=== PATIENT | female | born 1935 | race Caucasian/White ===

== ENCOUNTER 2020-03-31 11:20 | Observation (INO) | payer MEDICARE, SELFPAY ==
--- NOTE | 2020-03-25 09:46 | EKG12_ITS ---
Test Reason : PREOP Blood Pressure : / mmHG Vent. Rate : 088 BPM Atrial Rate : 089 BPM P-R Int : 132 ms QRS Dur : 074 ms QT Int : 378 ms P-R-T Axes : -10 -29 028 degrees QTc Int : 457 ms Normal sinus rhythm Normal ECG No previous ECGs available Confirmed by MONISHA CROOKS, JAMIE ([id number]), video effects editor PAUL BIANCHI ([id number]) on 03/28/2020 11:28:35 AM Referred By: Doc Crisostomo Confirmed By:JAMIE BEARDEN MD
[2020-03-25 10:22] LABS: Absolute Lymphocyte Count 3.89 X10^3/uL (0.83-4.51); Absolute Neutrophil Count 5.8 X10^3/uL (2.0-7.7); Basophil# 0.08 X10^3/uL; Basophil% 0.8 % (0-1); Eosinophil# 0.21 X10^3/uL; Hematocrit 44.5 % (37-47); Hemoglobin 14.4 g/dL (12.0-15.0); Lymphocyte # 3.89 X10^3/ul (4.0); Lymphocyte % 36.6 % (19-41); Mean Corp Hgb Conc 32.4 g/dL (32-36); Mean Corpuscular Hgb 28.9 pg (27.0-32.0); Mean Corpuscular Volume 89.2 fL (81-99); Mean Platelet Vol. 9.4 fl (6.2-12.0); Monocyte# 0.61 X10^3/uL; Monocyte% 5.7 % (0-10); NRBC Flagged by Analyzer 0 % (0-5); Neutrophil # 5.79 X10^3/uL (2.7-7.7); Neutrophil % 54.4 % (47-70); Platelet Count 292 K/mm3 (150-450); RBC Distribution Width CV 15.2 % (11.6-14.6); RBC Distribution Width SD 49.4 fl (35.1-43.9); Red Blood Count 4.99 M/mm3 (4.2-5.4); White Blood Count 10.6 K/mm3 (4.4-11.0)
[2020-03-25 10:48] LABS: Anion Gap 6 (5-15); BUN 12 mg/dL (7-18); BUN/Creat Ratio 21.8 RATIO (10-20); Calcium,Total 9.9 mg/dL (8.5-10.1); Chloride 106 mmol/L (98-107); Creatinine, Serum 0.55 mg/dL (0.55-1.02); EST Glomerular Filtration Rate 111 mL/min (>60); Est Glom Filt Rate - Afr Amer 135 mL/min (>60); Glucose 117 mg/dL (74-106); Potassium 3.7 mmol/L (3.5-5.1); Sodium Level 141 mmol/L (136-145)
[2020-03-25 10:55] LABS: Hemoglobin A1c 5.8 % (3.8-5.6); Prothrombin Time (Protime)PT. 12.7 SECONDS (11.7-14.9)
[2020-03-25 10:56] LABS: Partial Thromboplast Time 31.5 Seconds (24.1-36.2)
--- NOTE | 2020-03-28 08:40 | RAD_ITS ---
EXAM DESCRIPTION: PA and lateral CHEST CLINICAL HISTORY: 85 years Female, preoperative, patient having spinal cord stimulator inserted, patient has no chest complaints preoperative, patient having spinal cord stimulator inserted, patient has no chest complaints COMPARISON: None FINDINGS: The thorax is intact. The heart and mediastinum appear to be within normal limits. The lungs appear to be well areated without evidence of pneumonic consolidation or pleural effusion. RAD/Chest PA and Lateral IMPRESSION: Normal PA and lateral chest Electronically Signed: Jun Banda, at 9:21 EST Tel , Service support ,
[2020-03-31] VITALS (22 sets, daily range): BP systolic 79–166; BP diastolic 51–98; PULSE 47–101; RESP 14–18; TEMP 35.6–37.1; O2SAT 93–100; BMI 21.9
[2020-03-31] MEDS: Lactated Ringers 1,000 ML 100 ML IV ×4 (06:43→15:51)
[2020-03-31] MEDS: Cefazolin 2 GM in 0.9% Normal Saline 100 ML IV (07:24)
--- NOTE | 2020-03-31 07:30 | RAD_ITS ---
PROCEDURE: Thoracic laminectomy and spinal cord stimulator insertion. DATE OF EXAMINATION: 03/31/2020. INDICATION: Female, 85 years old. Chronic back pain. FLUOROSCOPY TIME (if supplied): (92 seconds) minutes/seconds. Intraoperative imaging provided for laminectomy at the T9-T10 level and placement of a spinal cord stimulator device. RAD/Spine 1 View Any Level IMPRESSION: Intraoperative imaging provided for laminectomy and placement of a spinal cord stimulator device. Electronically Signed: Jason Orona, at 16:02 EST , Service support ,
[2020-03-31] MEDS: THROMBIN (RECOMBINANT) 20,000 UNIT VIAL 20000 UNIT TOPICAL (09:00)
[2020-03-31] MEDS: Bupivacaine 0.25% 30 ML Vial (10:59)
[2020-03-31] MEDS: Lidocaine 1% (30 ml sdv) 30 ML Vial (11:05)
--- NOTE | 2020-03-31 11:44 | SUR.PHASEI ---
DR ELAINE AT BEDSIDE TO REEVALUATE PATIENT. CONTINUES TO BE SINUS [place] IN 40-50'S, SBP 70-80'S, SLOW TO RESPOND VERBALLY BUT HAS Hx OF CVA 12/2019 WITH SOME VERBAL IMPAIRMENT PER REPORT. ACCUCHECK 130. FOLLOWS COMMANDS, DANGELO X 4. CONTINUING LR IVF 1000 ML BOLUS ORDERED BY DR ELAINE AT 1127. ROBINUL 0.[address] ELAINE AT BEDSIDE. CONTINUE CURRENT POC. AT 1157, DR THOMAS AT BEDSIDE FOR CONDITION UPDATE AND NEURO EVAL.
--- NOTE | 2020-03-31 11:49 | PCM.OPRPT ---
Report of Operation Date of Procedure: 03/31/20 Description of Surgical Findings:: REPORT OF OPERATION PREOPERATIVE DIAGNOSES: 1. Lumbar stenosis, spondylosis. 2. Chronic back pain POSTOPERATIVE DIAGNOSES: 1. Lumbar stenosis, spondylosis. 2. Chronic back pain PROCEDURE PERFORMED: 1. T9-10 partial bilateral laminectomies. 2. Dorsal column stimulator paddle lead placement. 3. Subcutaneous placement of dorsal column stimulator generator. 4. One hour of complex programming postoperatively. SURGEON: Andressa EXTRUSION PRESS OPERATOR: ANESTHESIA: General endotracheal anesthesia. IV FLUIDS: 1500] mL of crystalloid. ESTIMATED BLOOD LOSS: 10 mL. URINE OUTPUT: N/A ml. STATEMENT OF MEDICAL NECESSITY: This patient is a 85 -year old female with intractable back and leg pain. The patient has opted for treatment of operative intervention, understanding the risks to include, damage to nerves, arteries and veins, possibility of continued pain, need for additional surgery, pulmonary embolism, heart attack, stroke, or . DESCRIPTION OF PROCEDURE: The patient was identified in the preoperative holding area. There, the patient received the preoperative IV antibotics and then transferred to the operating suite. Once in the operating suite, after general endotracheal anesthesia was established, the patient was transferred to the [place] operating table in the prone position. All bony prominences were padded accordingly. The thoracolumbar spine was prepped and draped in standard surgical fashion. Incision was made over the thoracolumbar spine. An incision was centered over the T9-10 interlaminar space, taken down to the thoracic fascia. It was then divided and subperiosteal dissection was taken down to the level of the facet joints. Partial bilateral laminectomies were performed at the T9-10 interspace, with part of the inferior lamina of T9, and superior lamina of T10. At this point the paddle lead was placed spanning from T8 to the inferior end plate of T10. It was then anchored to the fascia using standard anchors with a silk suture. Wires from the stimulator were then passed subcutaneously with a passing device to the battery pocket and then connected to a new generator battery on the posterior right hip. Both incisions were then irrigated and closed with #1 vicryl for the fascia, 2-0 vicryl for subcutaneous, and 2-0 nylon for skin. Sterile dressing was applied with 4 x 4, ABD, and tape. Sponge, instrument, and needle counts were correct at the end of the case. The patient was extubated, taken to PACU without incident. Then one hour was spent with complex programming when the patient recovered
[2020-03-31 11:51] LABS: Bedside Glucose 130 mg/dL (70-110)
--- NOTE | 2020-03-31 11:53 | PCM.DC.ORTHO ---
Additional Instructions: 1. During your procedure, you received sedation through your IV. Please follow these instructions for the next 24 hours: Do not drive a motor vehicle, do not drink any alcoholic beverages, and do not sign any legal documents or make personal or business decisions. A responsible adult should stay with you at least 6 hours after the procedure. 2. Keep your surgical site/incision clean and the dressing dry and intact. You may sponge bathe, but no showering or sitting in a bathtub during your trial or for one week after the permanent implant. You may use an ice pack at the surgical site to reduce any swelling or discomfort. 3. Monitor the incision site for any signs or symptoms of infection. Watch for redness, excessive swelling or drainage, or continued pain at the incision site after 3 days. Contact your physician immediately for a fever, chills or a temperature of 101.5? F or greater. 4. Take your medication exactly as prescribed by your physician. Do not attempt to wean yourself off any of your medications even though your pain is improving. This process needs to be carefully monitored by your doctor. Take any antibiotics prescribed exactly as directed and until they are gone. 5. Avoid stretching, bending, pulling, twisting or any sudden movements. Do not bend or twist at the waist. Do not raise your arms above your head; however, you may brush your hair or scratch your head, but nothing higher than that. Any movements higher than that could cause your electrode wires to move from their current position. No not lie on your stomach. Do not bend at the waist to put your shoes on; you must lift your legs up to do this. 6. No lifting greater than 5 pounds. A gallon of milk weighs more than 5 pounds, so you may not lift this. Try to be careful. Any falls could dislodge the leads. 7. Do not operate a motor vehicle, equipment or a power tool while your stimulator is on. If you need to use any equipment, you must turn your stimulator off first. As a passenger in a motor vehicle, you may use your stimulator. 8. Do not have any manipulation done by a chiropractor or any other physician without first consulting with the physician who placed your spinal cord stimulator. 9. Without movement, you may note changes in the intensity of the stimulator. For example, you may notice a different stimulation when you are standing than when you are sitting or lying down. This is normal the first few weeks following the implant and will stabilize over time. 10. Please contact our office if you are even scheduled for a CT scan or an MRI. 11. Please call us if you have any questions, problems or concerns. Allergies/Adverse Reactions: Allergies PLASTIC TAPE Allergy (Uncoded 03/31/20 06:26) Rash Medications to take at Discharge Acetaminophen [Tylenol Extra Strength] 500 mg PO Q6H PRN PRN 03/25/20 Ascorbic Acid [Vitamin C] 1,000 mg PO DAILY 03/25/20 Aspirin E.C. [Ecotrin] 81 mg PO DAILY@0800 03/25/20 Calcium (Elemental) [Os-Viral 500] 1,000 mg PO DAILY@0800 03/25/20 Cholecalciferol (Vitamin D3) [Vitamin D3] 5,000 unit PO DAILY 03/25/20 Cyanocobalamin (Vitamin B-12) [Vitamin B-12] 1,000 mcg PO DAILY 03/25/20 Folic Acid 0.4 mg PO DAILY@0800 03/25/20 Hydrochlorothiazide [Hctz] 25 mg PO DAILY 03/25/20 Lisinopril [Zestril] 20 mg PO DAILY 03/25/20 Magnesium 250 mg PO DAILY 03/25/20 Multivitamin 1 ea PO DAILY 03/25/20 [place]-3 Fatty Acids/Fish Oil [Fish Oil 1,000 mg Capsule] 1 ea PO DAILY 03/25/20 Omeprazole 20 mg PO DAILY 03/25/20 Potassium 99 mg PO DAILY 03/25/20 Turmeric Root Extract [Turmeric] 500 mg PO DAILY 03/25/20 Zinc 50 mg PO DAILY 03/25/20 Primary Care Physician: Saran Goss MD [Primary Care Provider] - Test Results: Test results from this visit will be discussed in further detail at your follow-up appointment, if applicable.
--- NOTE | 2020-03-31 12:03 | PCM.PN.BLA ---
Progress Note Patient was seen and examined postop in the PACU. She is doing well. She is mildly hypotensive and bradycardic but is resting comfortably. She is alert and oriented and answers questions and follows commands. Her pain is controlled. Alert and oriented, no acute distress Abdomen soft and nontender Dressing clean dry and intact Extremities neurovascularly intact without focal deficit Admit to observation when stable See orders STROKE Vital Signs/Narrative: Vital Signs Temp Pulse Resp BP Pulse Ox 03/31/20 11:45 47 L 14 83/56 L 98 03/31/20 11:35 49 L 14 79/51 L 93 03/31/20 11:30 57 L 14 84/58 L 96 03/31/20 11:20 96.1 F L 56 L 14 91/58 L 97
--- NOTE | 2020-03-31 14:38 | PCM.PROGNOTE ---
Subjective: Patient was seen and examined today at the request of orthopedic surgery (Dr. Crisostomo), patient underwent implantation of a dorsal column stimulator and a laminectomy at T9-T10 for insertion of the stimulator. Postop patient was hypotensive for a short period of time with blood pressures in the 70s and 80s systolic, she was also bradycardic with pulse rates into the upper 40s, patient was asymptomatic and was given fluids. Since that time, patient's pulse rate has normalized and her blood pressure was 128/80. At the time of my examination, patient has no complaints of any back discomfort, shortness of breath, chest pain, fever, or chills. Patient's past medical history includes essential hypertension, osteoarthritis, GERD, spinal stenosis, failed spinal surgery, and CVA. - Physical Exam Vitals/I&O's: Vital Signs Temp Pulse Resp BP Pulse Ox 98.7 F 65 18 128/80 H 98 03/31/20 13:36 03/31/20 13:36 03/31/20 13:36 03/31/20 13:36 03/31/20 13:36 Oxygen Flow Rate (L/min) 2 Oxygen Delivery Method Room Air Weight: 54.3 kg Body Mass Index (BMI) 21.9 Finger Stick Blood Glucose 130 Intake and Output for Last 24 Hours 03/29/20 03/30/20 03/31/20 23:59 23:59 23:59 Intake Total 2109 Balance 2109 General: Alert, Oriented x3, Cooperative, No apparent distress, Well developed, Well nourished HEENT: Atraumatic, PERRLA, EOMI, Normocephalic Oral: Moist Mucosa Neck: Supple, No JVD, Negative Carotid Bruits, Trachea Midline, Thyroid Normal Size and Texture Lungs: Clear to auscultation, Normal air movement, No rhonchi, No wheeze, No rales Cardiovascular: Regular rate, Regular Rhythm, Normal S1, Normal S2, No murmurs, PMI Normal, No rub noted Abdomen: Bowel Sounds Present, Soft, Non Tender, Non-Distended Extremities: No clubbing, No cyanosis, No edema, Capillary Refill Less than 3 Seconds Skin: No rashes, No breakdown Musculoskeletal: No Tenderness to Palpation of Joints or Extremities Neurological: Cranial nerves II-XII grossly intact, Neuro grossly intact, Sensory exam intact to light touch and pain, Coordination normal Psych/Mental Status: Normal Affect, Appropriate, Alert and oriented to time, place, person, mood and affect Microbiology Past 72 Hours 03/28/20 09:00 Interface Orders SARS-CoV-2 Antigen (Rapid) - Final Laboratory Results 03/31/20 11:44: POC Glucose 130 H Current Medications Hydrocodone Bitart/Acetaminophen (Hydrocodone Bitartrate/Apap 5/325 Tablet) 1 tablet PO Q6H PRN PRN PRN Reason: Pain Score 4-5 Hydrochlorothiazide (Hydrochlorothiazide 25 Mg Tablet) 25 mg PO DAILY [facility] Lactated Ringer's () 1,000 mls @ 100 mls/hr IV .Q10H WILLIAM Last Admin: 03/31/20 12:10 Dose: 100 mls/hr Documented by: Lisinopril (Lisinopril 20 Mg Tablet) 20 mg PO DAILY [facility] Morphine Sulfate (Morphine 2 Mg/Ml Syringe) 2 - 4 mg IV Q4H PRN PRN PRN Reason: Pain Score 6-10 Morphine Sulfate (Morphine 4 Mg/Ml Syringe) 2 - 4 mg IV Q4H PRN PRN PRN Reason: Pain Score 6-10 Non-Formulary Medication (Omeprazole) 20 mg PO DAILY [facility] Ondansetron HCl (Ondansetron 4 Mg/2 Ml Vial) 4 mg IV Q6H PRN PRN PRN Reason: NAUSEA Tizanidine HCl (Tizanidine Hcl 2 Mg Tablet) 2 mg PO Q8H PRN PRN PRN Reason: SPASMS Medical Necessity - Tobacco Use Smoking Status: Never smoker Tobacco Use: Non-smoker Assessment/Plan #1 essential hypertension-I have ordered the patient's home medications for her blood pressure, she will receive them tomorrow, patient will remain on monitor for now due to her bradycardic episode. #2 lumbar spinal stenosis/spondylosis #3 failed previous back surgery-lumbar surgery #4 status post insertion of dorsal column stimulator with laminectomy T9/T10 #5 transient bradycardia-etiology unclear, monitor patient on telemetry #6 hypotension-transient, etiology unclear, patient will resume her blood pressure medications tomorrow #7 cerebrovascular disease-patient will remain off aspirin and Plavix at least 3 days after her surgery according to her surgeon Dr. Crisostomo, spoke briefly with Dr. Crisostomo concerning the patient's medical problems. #8 osteoarthritis #9 gastroesophageal reflux disease-patient is on Prilosec as an outpatient, she will receive Protonix while in the hospital #10 intractable back and leg pain secondary to #2 Inpatient E&M: 44201 Subs Hosp L2
[2020-03-31] MEDS: Morphine 2 MG/ML Syringe IV ×2 (14:51→21:37)
[2020-03-31] MEDS: Pantoprazole Sodium 20 MG Tablet PO (15:51)
[2020-03-31] MEDS: HYDROcodone Bitartrate/Apap 5/325 Tablet PO (17:21)
[2020-04-01 00:07] VITALS: PULSE 83
[2020-04-01 01:36] VITALS: BMI 21.9
[2020-04-01] MEDS: Lactated Ringers 1,000 ML 100 ML IV (02:19)
[2020-04-01 03:35] VITALS: BP 127/92; PULSE 75; RESP 16; TEMP 36.9; O2SAT 95
[2020-04-01 04:08] VITALS: PULSE 85
[2020-04-01] MEDS: HYDROcodone Bitartrate/Apap 5/325 Tablet PO (05:12)
[2020-04-01 05:20] VITALS: BMI 21.9
[2020-04-01 06:16] LABS: Hematocrit 34.7 % (37-47); Hemoglobin 11.5 g/dL (12.0-15.0); Mean Corp Hgb Conc 33.1 g/dL (32-36); Mean Corpuscular Hgb 29.6 pg (27.0-32.0); Mean Corpuscular Volume 89.2 fL (81-99); Mean Platelet Vol. 9.6 fl (6.2-12.0); Platelet Count 220 K/mm3 (150-450); Red Blood Count 3.89 M/mm3 (4.2-5.4); White Blood Count 9.9 K/mm3 (4.4-11.0)
[2020-04-01 06:42] LABS: Anion Gap 4 (5-15); BUN 11 mg/dL (7-18); BUN/Creat Ratio 23.3 RATIO (10-20); Calcium,Total 8.4 mg/dL (8.5-10.1); Chloride 108 mmol/L (98-107); Creatinine, Serum 0.47 mg/dL (0.55-1.02); EST Glomerular Filtration Rate 133 mL/min (>60); Est Glom Filt Rate - Afr Amer 161 mL/min (>60); Estimated Creatinine Clearance 32.53 ml/min; Glucose 116 mg/dL (74-106); Potassium 3.6 mmol/L (3.5-5.1); Sodium Level 138 mmol/L (136-145)
--- NOTE | 2020-04-01 08:33 | PN_ITS ---
Objective: Patient was hypotensive for brief period of time during surgery and recovered. Blood pressure is normotensive. 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 Physical exam General: Alert, Oriented x3, Cooperative HEENT: Atraumatic, PERRLA, EOMI, Normocephalic Oral: No Gingival or Mucosal Lesions/ Ulcerations Neck: Supple, No JVD, Negative Carotid Bruits Lungs: Air entry equal in bilateral lung bases. No crepitation/rhonchi Cardiovascular: Regular rate, Regular Rhythm, Normal S1, Normal S2, No murmurs Abdomen: Bowel Sounds Present, Soft, Non Tender, Non-Distended : No renal angle tenderness. No suprapubic tenderness. Extremities: No edema, Capillary Refill Less than 3 Seconds Skin: No rashes, No breakdown Musculoskeletal: Tenderness over operative region and lower thoracic spine. No Tenderness to Palpation of Joints or Extremities Neurological: Cranial nerves II-XII grossly intact, Deep Tendon Reflexes 2+/4 and Symmetrical, Neuro grossly intact Psych/Mental Status: Normal Affect, Appropriate. Vitals/I&O's: Vital Signs Temp Pulse Resp BP Pulse Ox 98.5 F 85 16 127/92 H 95 04/01/20 03:35 04/01/20 04:08 04/01/20 03:35 04/01/20 03:35 04/01/20 03:35 Oxygen Flow Rate (L/min) 2 Oxygen Delivery Method Room Air Weight: 119 lb 11.376 oz Body Mass Index (BMI) 21.9 Finger Stick Blood Glucose 130 Intake and Output for Last 24 Hours 03/30/20 03/31/20 04/01/20 23:59 23:59 23:59 Intake Total 3198.33 / 3198.33 1400 / 1400 Output Total 650 / 650 400 / 400 Balance 2548.33 / 2548.33 1000 / 1000 Laboratory Results 03/31/20 11:44: POC Glucose 130 H 04/01/20 05:40: Sodium 138, Potassium 3.6, Chloride 108 H, Carbon Dioxide 26.0, Anion Gap 4 L, BUN 11, Creatinine 0.47 L, Estim Creat Clear Calc 32.53, Est GFR (MDRD) Af Amer 161, Est GFR (MDRD) Non-Af 133, BUN/Creatinine Ratio 23.3 H, Glucose 116 H, Calcium 8.4 L 04/01/20 05:40: WBC 9.9, RBC 3.89 L, Hgb 11.5 L, Hct 34.7 L, MCV 89.2, MCH 29.6, MCHC 33.1, RDW Std Deviation 49.0 H, RDW Coeff of [place] 15.0 H, Plt Count 220, MPV 9.6 Current Medications Hydrocodone Bitart/Acetaminophen (Hydrocodone Bitartrate/Apap 5/325 Tablet) 1 tablet PO Q6H PRN PRN PRN Reason: Pain Score 4-5 Last Admin: 04/01/20 05:12 Dose: 1 tablet Documented by: Hydrochlorothiazide (Hydrochlorothiazide 25 Mg Tablet) 25 mg PO DAILY [facility] Lactated Ringer's () 1,000 mls @ 100 mls/hr IV .Q10H [facility] Last Admin: 04/01/20 02:19 Dose: 100 mls/hr Documented by: Lisinopril (Lisinopril 20 Mg Tablet) 20 mg PO DAILY [facility] Morphine Sulfate (Morphine 2 Mg/Ml Syringe) 2 - 4 mg IV Q4H PRN PRN PRN Reason: Pain Score 6-10 Last Admin: 03/31/20 21:37 Dose: 2 mg Documented by: Morphine Sulfate (Morphine 4 Mg/Ml Syringe) 2 - 4 mg IV Q4H PRN PRN PRN Reason: Pain Score 6-10 Ondansetron HCl (Ondansetron 4 Mg/2 Ml Vial) 4 mg IV Q6H PRN PRN PRN Reason: NAUSEA Pantoprazole Sodium (Pantoprazole Sodium 20 Mg Tablet) 20 mg PO DAILY [facility] Sodium Chloride (0.9% Saline Lock 10 Ml Syringe) 10 - 40 ml IV UD PRN PRN Reason: SALINE FLUSH Tizanidine HCl (Tizanidine Hcl 2 Mg Tablet) 2 mg PO Q8H PRN PRN PRN Reason: SPASMS Medical Necessity - Tobacco Use Smoking Status: Never smoker Tobacco Use: Non-smoker Assessment/Plan #1 essential hypertension-I have ordered the patient's home medications for her blood pressure, she will receive them tomorrow, patient will remain on monitor for now due to her bradycardic episode. #2 Chronic lumbar spinal stenosis/spondylosis: Patient had T9-10 partial bilateral laminectomy, dorsal column stimulator paddle lead placement and dorsal column stimulator. On naflex 2 mg 8 hourly as needed. #3 failed previous back surgery-lumbar surgery #4 transient bradycardia-etiology unclear, monitor patient on telemetry #5 hypotension-transient, due to spinal surgery and anesthesia. Patient BP medications regimen lisinopril and HCTZ. #6 cerebrovascular disease-patient will remain off aspirin and Plavix at least 3 days after her surgery according to her surgeon Dr. Crisostomo. #7 gastroesophageal reflux disease-patient is on Prilosec as an outpatient, she will receive Protonix while in the hospital Patient is being discharged home. Follow-up with Dr. Crisostomo. Inpatient E&M: 40308 Subs Hosp L2
[2020-04-01 08:40] VITALS: BP 119/67; PULSE 86; RESP 18; TEMP 36.5; O2SAT 98
--- NOTE | 2020-04-01 09:28 | DS.PCM_ITS ---
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 She underwent implantation of a spinal cord stimulator lead and generator on 03/31/2020. She was admitted for observation postop. She had an episode of hypotension and bradycardia in the PACU which was treated successfully with a fluid bolus. She subsequently did very well. She progressed well with physical therapy. Her pain was well controlled. She had no other complaints postop. The hospitalist was consulted to manage her medical issues. She was seen on 04/01/2020. The patient was seen and examined. She is doing very well. Her pain is minimal. She is up in a chair resting. She has no complaints including numbness tingling weakness. Alert and oriented x3, no acute distress Abdomen soft and nontender Dressings clean dry and intact Extremities neurovascularly intact without focal deficits. No edema or tenderness of the calf. Okay to discharge home Discharge instructions given Hold aspirin, anticoagulation, anti-inflammatories for 1 week Hold blood pressure medications until tomorrow per hospitalist Follow-up in clinic for suture removal in 3 weeks as scheduled - Physical Exam Vitals/I&O's: Vital Signs Temp Pulse Resp BP Pulse Ox 97.7 F L 86 18 119/67 98 04/01/20 08:40 04/01/20 08:40 04/01/20 08:40 04/01/20 08:40 04/01/20 08:40 Oxygen Flow Rate (L/min) 2 Oxygen Delivery Method Room Air Weight: 119 lb 11.376 oz Body Mass Index (BMI) 21.9 Finger Stick Blood Glucose 130 Intake and Output for Last 24 Hours 03/30/20 03/31/20 04/01/20 23:59 23:59 23:59 Intake Total 3198.33 / 3198.33 1400 / 1400 Output Total 650 / 650 400 / 400 Balance 2548.33 / 2548.33 1000 / 1000 General: Alert, Oriented x3 HEENT: PERRLA, EOMI Oral: Moist Mucosa Neck: Supple, No JVD Lungs: Clear to auscultation, Normal air movement Cardiovascular: Regular rate, Regular Rhythm Abdomen: Soft, Non Tender Extremities: No edema, Capillary Refill Less than 3 Seconds, No Calf Tenderness Skin: No rashes, No breakdown Musculoskeletal: No Tenderness to Palpation of Joints or Extremities Neurological: Deep Tendon Reflexes 2+/4 and Symmetrical, Neuro grossly intact, Motor Exam 5/5 strength throughout, Sensory exam intact to light touch and pain Psych/Mental Status: Normal Affect, Appropriate Laboratory Results 03/31/20 11:44: POC Glucose 130 H 04/01/20 05:40: Sodium 138, Potassium 3.6, Chloride 108 H, Carbon Dioxide 26.0, Anion Gap 4 L, BUN 11, Creatinine 0.47 L, Estim Creat Clear Calc 32.53, Est GFR (MDRD) Af Amer 161, Est GFR (MDRD) Non-Af 133, BUN/Creatinine Ratio 23.3 H, Glucose 116 H, Calcium 8.4 L 04/01/20 05:40: WBC 9.9, RBC 3.89 L, Hgb 11.5 L, Hct 34.7 L, MCV 89.2, MCH 29.6, MCHC 33.1, RDW Std Deviation 49.0 H, RDW Coeff of [place] 15.0 H, Plt Count 220, MPV 9.6 Current Medications Hydrocodone Bitart/Acetaminophen (Hydrocodone Bitartrate/Apap 5/325 Tablet) 1 tablet PO Q6H PRN PRN PRN Reason: Pain Score 4-5 Last Admin: 04/01/20 05:12 Dose: 1 tablet Documented by: Hydrochlorothiazide (Hydrochlorothiazide 25 Mg Tablet) 25 mg PO DAILY [facility] Last Admin: 04/01/20 09:17 Dose: Not Given Documented by: Lisinopril (Lisinopril 20 Mg Tablet) 20 mg PO DAILY [facility] Last Admin: 04/01/20 09:18 Dose: Not Given Documented by: Morphine Sulfate (Morphine 2 Mg/Ml Syringe) 2 - 4 mg IV Q4H PRN PRN PRN Reason: Pain Score 6-10 Last Admin: 03/31/20 21:37 Dose: 2 mg Documented by: Morphine Sulfate (Morphine 4 Mg/Ml Syringe) 2 - 4 mg IV Q4H PRN PRN PRN Reason: Pain Score 6-10 Ondansetron HCl (Ondansetron 4 Mg/2 Ml Vial) 4 mg IV Q6H PRN PRN PRN Reason: NAUSEA Pantoprazole Sodium (Pantoprazole Sodium 20 Mg Tablet) 20 mg PO DAILY [facility] Sodium Chloride (0.9% Saline Lock 10 Ml Syringe) 10 - 40 ml IV UD PRN PRN Reason: SALINE FLUSH Tizanidine HCl (Tizanidine Hcl 2 Mg Tablet) 2 mg PO Q8H PRN PRN PRN Reason: SPASMS Discharge Diet: No Restrictions Home Medications: Medications to take at Discharge Acetaminophen [Tylenol] 500 mg PO Q6H PRN PRN 03/25/20 Ascorbic Acid [Vitamin C] 1,000 mg PO DAILY 03/25/20 Calcium (Elemental) [Os-Viral 500] 1,000 mg PO DAILY@0800 03/25/20 Cholecalciferol (Vitamin D3) [Vitamin D3] 5,000 unit PO DAILY 03/25/20 Cyanocobalamin (Vitamin B-12) [Vitamin B-12] 1,000 mcg PO DAILY 03/25/20 Folic Acid 0.4 mg PO DAILY@0800 03/25/20 Hydrochlorothiazide [Hctz] 25 mg PO DAILY 03/25/20 Lisinopril [Zestril] 20 mg PO DAILY 03/25/20 Magnesium 250 mg PO DAILY 03/25/20 Multivitamin 1 ea PO DAILY 03/25/20 [place]-3 Fatty Acids/Fish Oil [Fish Oil 1,000 mg Capsule] 1 ea PO DAILY 03/25/20 Omeprazole 20 mg PO DAILY 03/25/20 Potassium 99 mg PO DAILY 03/25/20 Turmeric Root Extract [Turmeric] 500 mg PO DAILY 03/25/20 Zinc 50 mg PO DAILY 03/25/20 Hydrocodone/Acetaminophen [Hydrocodon-Acetaminophen 5-325] 1 - 2 ea PO Q4H PRN PRN 7 Days #30 tab 03/31/20 Tizanidine HCl [Zanaflex] 2 mg PO Q6H PRN PRN 7 Days #30 cap 03/31/20 Following Prescriptions Were Given to Patient: Hydrocodone/Acetaminophen [Hydrocodon-Acetaminophen 5-325] 1 - 2 ea PO Q4H PRN PRN 7 Days #30 tab PRN Reason: Pain Transmission Status: Received by [facility] Tizanidine HCl [Zanaflex] 2 mg PO Q6H PRN PRN 7 Days #30 cap PRN Reason: Spasms Transmission Status: Received by [facility] Primary Care Physician: Saran Goss MD [Primary Care Provider] - Please Follow Up With: Doc Crisostomo DO When: 3 weeks Additional Instructions: 1. During your procedure, you received sedation through your IV. Please follow these instructions for the next 24 hours: Do not drive a motor vehicle, do not drink any alcoholic beverages, and do not sign any legal documents or make personal or business decisions. A responsible adult should stay with you at least 6 hours after the procedure. 2. Keep your surgical site/incision clean and the dressing dry and intact. You may sponge bathe, but no showering or sitting in a bathtub during your trial or for one week after the permanent implant. You may use an ice pack at the surgical site to reduce any swelling or discomfort. 3. Monitor the incision site for any signs or symptoms of infection. Watch for redness, excessive swelling or drainage, or continued pain at the incision site after 3 days. Contact your physician immediately for a fever, chills or a temperature of 101.5? F or greater. 4. Take your medication exactly as prescribed by your physician. Do not attempt to wean yourself off any of your medications even though your pain is improving. This process needs to be carefully monitored by your doctor. Take any antibiotics prescribed exactly as directed and until they are gone. 5. Avoid stretching, bending, pulling, twisting or any sudden movements. Do not bend or twist at the waist. Do not raise your arms above your head; however, you may brush your hair or scratch your head, but nothing higher than that. Any movements higher than that could cause your electrode wires to move from their current position. No not lie on your stomach. Do not bend at the waist to put your shoes on; you must lift your legs up to do this. 6. No lifting greater than 5 pounds. A gallon of milk weighs more than 5 pounds, so you may not lift this. Try to be careful. Any falls could dislodge the leads. 7. Do not operate a motor vehicle, equipment or a power tool while your stimulator is on. If you need to use any equipment, you must turn your stimulator off first. As a passenger in a motor vehicle, you may use your stimulator. 8. Do not have any manipulation done by a chiropractor or any other physician without first consulting with the physician who placed your spinal cord stimulator. 9. Without movement, you may note changes in the intensity of the stimulator. For example, you may notice a different stimulation when you are standing than when you are sitting or lying down. This is normal the first few weeks following the implant and will stabilize over time. 10. Please contact our office if you are even scheduled for a CT scan or an MRI. 11. Please call us if you have any questions, problems or concerns. Disposition: Home Minutes spent on discharge:: 20 Medical Necessity - Tobacco Use Smoking Status: Never smoker Tobacco Use: Non-smoker Meaningful Use Info Meaningful Use Diagnoses (Choose all that apply): None applicable
[2020-04-01 09:36] VITALS: BMI 21.9
[2020-04-01] MEDS: Pantoprazole Sodium 20 MG Tablet PO (10:41)
--- NOTE | 2020-04-01 11:07 | PHA.DC.MC ---
Pharmacy Service has performed discharge medication reconciliation and counseling for this patient. 1. HYRDOCODONE/ACETAMINOPHEN 5/325MG PO Q4H PRN PAIN X 7 DAYS 2. TIZANIDINE 2MG PO Q6H PRN SPASMS X 7 DAYS The patient's discharge medication list was reviewed for discrepancies and discrepancies were resolved. Home Medications Acetaminophen [Tylenol] 500 mg PO Q6H PRN PRN 03/25/20 Ascorbic Acid [Vitamin C] 1,000 mg PO DAILY 03/25/20 Calcium (Elemental) [Os-Viral 500] 1,000 mg PO DAILY@0800 03/25/20 Cholecalciferol (Vitamin D3) [Vitamin D3] 5,000 unit PO DAILY 03/25/20 Cyanocobalamin (Vitamin B-12) [Vitamin B-12] 1,000 mcg PO DAILY 03/25/20 Folic Acid 0.4 mg PO DAILY@0800 03/25/20 Hydrochlorothiazide [Hctz] 25 mg PO DAILY 03/25/20 Lisinopril [Zestril] 20 mg PO DAILY 03/25/20 Magnesium 250 mg PO DAILY 03/25/20 Multivitamin 1 ea PO DAILY 03/25/20 [place]-3 Fatty Acids/Fish Oil [Fish Oil 1,000 mg Capsule] 1 ea PO DAILY 03/25/20 Omeprazole 20 mg PO DAILY 03/25/20 Potassium 99 mg PO DAILY 03/25/20 Turmeric Root Extract [Turmeric] 500 mg PO DAILY 03/25/20 Zinc 50 mg PO DAILY 03/25/20 Hydrocodone/Acetaminophen [Hydrocodon-Acetaminophen 5-325] 1 - 2 ea PO Q4H PRN PRN 7 Days #30 tab 03/31/20 Tizanidine HCl [Zanaflex] 2 mg PO Q6H PRN PRN 7 Days #30 cap 03/31/20 The patient was counseled on the following discharge medications and changes in medications for homegoing were reviewed. The Reason for Use, instructions for use, and potential side effects were reviewed for all new medications. The patient's questions regarding all of their medications were answered. The patient was able to verbally demonstrate an understanding of their discharge medications.
[2020-04-01 12:07] VITALS: BP 124/68; PULSE 74; RESP 18; TEMP 37.2; O2SAT 98
== END 2020-04-01 12:05 | disposition home or self-care (01) ==
LOC: MS3 11:35
PROVIDERS: Admitting Provider Orthopaedic Surgery; PCP Family Medicine; Referring Provider Orthopaedic Surgery; Visit Provider Orthopaedic Surgery
PROC: (CPT 63030; principal; 2020-03-31 07:00)
DX: M47.816 Spondylosis without myelopathy or radiculopathy, lumbar region (principal); M48.061 Spinal stenosis, lumbar region without neurogenic claudication; Z20.828 Contact with and (suspected) exposure to other viral communicable diseases; G89.29 Other chronic pain; Z79.899 Other long term (current) drug therapy; Z79.82 Long term (current) use of aspirin; I95.9 Hypotension, unspecified; R00.1 Bradycardia, unspecified; Z86.73 Personal history of transient ischemic attack (TIA), and cerebral infarction without residual deficits; I10 Essential (primary) hypertension; M19.90 Unspecified osteoarthritis, unspecified site; K21.9 Gastro-esophageal reflux disease without esophagitis
CPT/HCPCS: 00400; 63655; 63685; 95972; 36415; 71046; 72020; 76000; 80048; 82962; 83036; 85025; 85027; 85610; 85730; 87426; 93005; 96361; 96374; 96376; 97116; 97162; 97530; 99218; C1778; C1820; C9803; J7120; G0378; G0379; J2405